=== PATIENT | female | born 1965 | race Two or more races ===

== ENCOUNTER 2020-05-02 23:40 | Emergency (ER) | payer OTHER ==
[~2020-05-02] VITALS: Ht 157.5 cm; Wt 64.0 kg
[2020-05-02 23:50] VITALS: BP 144/83
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
[2020-05-03] MEDS ORDERED: SILVER SULFADIAZINE CREAM 25 GM TUBE ONE (00:17)
[2020-05-03] MEDS ORDERED: SILVER SULFADIAZINE CREAM 25 GM TUBE TP ONE (00:30)
--- NOTE | 2020-05-03 00:42 | NUR ---
Patient discharged to home in stable condition. Written and verbal after care instructions given. Patient verbalizes understanding of instruction.
== END 2020-05-03 00:43 | disposition home or self-care (01) ==
LOC: ER 23:42
DX: L55.9 Sunburn, unspecified (principal); Z90.710 Acquired absence of both cervix and uterus